=== PATIENT | female | born 1945 | race Caucasian/White ===

== ENCOUNTER → 2017-09-28 13:54 | Outpatient (CLI) | payer MEDICARE, SELFPAY ==
[2017-09-28 14:44] LABS: Add Manual Diff / Slide Review NO; Basophils Percent Auto 1.2 % (0-2); Eosinophils Percent Auto 3.9 % (2-4); Hematocrit 35.7 % (36-46); Hemoglobin 12.3 g/dL (12.0-16.0); Lymphocytes Percent Auto 29.5 % (25-40); Mean Corpuscular HGB Conc 34.5 % (30-36); Mean Corpuscular Hemoglobin 35.6 PG (26-34); Mean Corpuscular Volume 103.2 fL (80-100); Monocytes Percent Auto 10.1 % (3-14); Neutrophils Absolute Auto 2500 /uL (3000-5900); Neutrophils Percent Auto 55.3 % (50-75); Platelet Count 211 X10^3/uL (150-400); Red Blood Cell Count 3.46 X10^6/uL (4.0-5.2); Red Cell Distribution Width 14.9 % (11.6-14.8); White Blood Cell Count 4.5 X10^3/uL (4.5-11.0)
[2017-09-28 15:11] LABS: Alanine Aminotransferase 21 IU/L (9-52); Albumin 3.9 g/dL (3.5-5.0); Albumin Globulin Ratio 1.1 (1.0-2.8); Alkaline Phosphatase 60 U/L (38-126); Aspartate Aminotransferase 22 IU/L (14-36); Bilirubin Total 0.3 mg/dL (0.2-1.3); Calcium 9.3 mg/dL (8.4-10.2); Estimated Glomerular Filt Rate > 60.0 mL/min (>60); Globulin 3.7 g/dL (1.7-4.1); Glucose 102 mg/dL (80-110); HEMOLYSIS 19 (0-50); Potassium 4.1 mmol/L (3.4-5.1); Sodium 140 mmol/L (137-145); Total Protein 7.6 g/dL (6.3-8.2)
[2017-09-30 16:18] LABS: Cancer Antigen 27.29 63 U/mL (< 38)
== END ==
PROVIDERS: Family Provider Family Medicine; PCP Family Medicine; Visit Provider Nurse Practitioner Gerontology
DX: C50.911 Malignant neoplasm of unspecified site of right female breast (principal)
CPT/HCPCS: 36415; 80053; 85025; 86300

== ENCOUNTER → 2017-11-01 14:00 | Oncology outpatient (ONC) | payer MEDICARE, SELFPAY ==
--- NOTE | 2017-09-14 14:35 | ONC.NAV ---
Description: T/C from [employer] re: Ibrance funding Activity: [employer] called to share that pt has been approved for the remainder of 2018 for the full cost of her Ibrance, after insurance. They have sent her a letter to confirm this approval.
--- NOTE | 2017-10-05 09:19 | ONC.APRN.PN ---
Assessment and Plan (1) Metastatic breast cancer Current visit: No Status: Acute 10/05/17 09:25 Dilma is a very pleasant 72-year-old female who carries a diagnosis of recurrent ER positive, her 2-breast cancer with regional node involvement. She continues to show a clinical and biochemical response to first-line therapy with palbociclib and letrozole. Right side radiation was initiated September 27 with plan to administer once daily x6 weeks, Dr. Richmond is managing. Seems to be tolerating thus far without adverse effects. Dilma does present with symptoms today of a viral upper respiratory infection. Began about 5 days ago with a sore throat also reporting some head congestion, dry cough. Continue supportive measures in the form of Flonase, Claritin, Sudafed. She has a prescription about 1-year-old for amox she has been taking about 2 days. She is to call the clinic if she is not feeling better in 2 days or if at any time she develops fever, chills, productive cough. CBC and CMP remain stable, additionally, CA 27-29 continues to trend downward. White count is normal today, neutrophils a bit on the low side at 2500. She still remains within treatment guidelines for ibrance. Cont daily letrozole 2.5 mg also ibrance 125mg q14 days of a 21 day cycle. RTC in one month provider visit cbc cmp ca 27.29. Continue radiation. In regards to her returning home to [place] recommend follow-up imaging about 3 months after radiation to assess for disease stability. Patient verbalizes understanding. 10/05/17 14:50 - Time Spent with Patient 35 mins PN -Subjective Interval history: Dilma is a very pleasant 72-year-old female who carries a diagnosis of recurrent ER positive, her 2-breast cancer with regional node involvement. She has demonstrated a clinical and biochemical response to first-line therapy palbociclib, letrozole which was initiated january 2017. Dilma presents today for one month clinical evaluation. During the erim she was on vacation with her daughter to [place] and [place]. Additionally, right side radiation was initiated September 27, Dr Richmond is managing. She is scheduled for QD radiation x 6 weeks. Today Dilma reports overall she is feeling well aside from cold symptoms she developed about 5 days ago. No fever or chills began with a sore throat and dry cough. She is taking sudafed and using flonase. had an old RX for amox which she strated taking 2 days ago. Feels poorly in the morning then seems to feel better as the day progresses. Also reporting congestion in my head and ears. Also taking claritin. Seems to be tolerating radiation thus far. States skin is not irritated, she is not feeling more fatigued. Remains on letrozole 2.5mg QD, Ibrance 125mg Q 14 days of 21 day schedule. Planning to return home to [place] after radiation, she does have a cancer center locally in [place]. TIMELINE: Past Medical History The patient's past medical history is significant for: 1) Metastatic breast cancer, local-regional recurrence. ER/NE positive HER-2 negative. Clinical presentation: -Enlarged, clustered, palpable lymph nodes at the following stations: right supraclavicular (~3 cm) and right axillary (~3 cm). Chest wall lesion. Complicating right upper extremity edema from the adenopathy. Diagnosis: -12/08/2016. Chest wall incisional biopsy. Pathology confirming moderate to poorly differentiated adenocarcinoma infiltrating the dermis and subcutaneous tissues. Immunostains were ER and NE positive at 80% and 40% respectively. HER-2 0. -01/04/2017. Right supraclavicular node biopsy. Pathology showing a few atypical cells of which CHEIKH 3 and ER are positive. HER-2 = 0. Clinical staging workup, pretreatment: -12/10/2016. CT chest abdomen pelvis with contrast. Right pleural effusion with subtle pleural thickening and enhancement. Positive mediastinal lymph nodes but not meeting pathological size criteria. Right supraclavicular fossa confluent adenopathy measuring 33 x 30 mm. Right axillary adenopathy measuring 32 x 36 mm. Nodular thickening along the right lateral mastectomy bed. Indeterminate findings included left kidney exophytic cystic lesion measuring 9 cm. -12/10/2016. CT head with and without contrast. No evidence of MODEL TECHNICIAN disease. -12/18 2016. PET/CT scan. Confluent adenopathy in the right supraclavicular fossa with an SUV of 3.2. Right axillary lymph nodes with an SUV of 4.2. No SUV uptake seen in the right pleural effusion or mediastinal lymph nodes. Soft tissue density was identified in the anterior mediastinum with an SUV of 2.3. -01/08/2017. MRI brain with and without contrast. Foci of increased T2 signal subcortical and. Ventricular matter most consistent with chronic ischemic change. No abnormal enhancement to suggest malignancy. Risk Assessment: 04/07/2017. myRisk panel through [employer]. No clinically significant mutations identified. No mutations of undetermined clinical significance identified. First-line therapy metastatic setting: Palbociclib and letrozole. -01/15/2017-present. Letrozole 2.5 mg daily with palbociclib 125 mg daily ??21 days of a 28 day cycle. -01/18/2017. Baseline CEA 35. CA 15-3= 314. CA 27.29= 628. 2) DCIS right breast. Diagnosis: 2000 diagnosed and treated in [place]. Patient is status post mastectomy without axillary lymph node sampling. No chest wall or radiation. Patient was able to tolerate tamoxifen for 6 months only. 3) goiter. 4) glaucoma. 5) chronic headaches. Home Medications and Allergies Home Medications Medication Instructions Recorded Confirmed Type acetaminophen 325 mg PO #0 12/08/16 History loratadine [Claritin Liqui-Gel] 10 mg PO QDAY #0 12/08/16 History pseudoephedrine HCl 30 mg PO Q4HP PRN #0 12/08/16 History venlafaxine [Effexor XR] 150 mg PO QDAY #0 12/08/16 History risperidone [Risperdal] 0.5 mg PO HS #30 tab 12/23/16 Rx letrozole [Femara] 2.5 mg PO QDAY #90 tab 01/01/17 Rx latanoprost 1 drp OPHTH HS #0 06/08/17 History palbociclib [Ibrance] 125 mg PO QDAY #21 cap 07/08/17 Rx omeprazole 20 mg PO QDAY #90 cap 08/09/17 Rx fluticasone 50 mcg/actuation nasal 1 - 2 spray INTRANASAL QDAY #2 bot 10/01/17 Rx spray,suspension Allergies Allergy/AdvReac Type Severity Reaction Status Date / Time No Known Allergies Allergy Uncoded 08/18/17 12:45 Exam Narrative: well appearing - Constitutional positive no acute distress, positive average body habitus - Routine HEENT Exam Head: Present: normocephalic Eye: Present: EOMI, PERRL, normal accommodation, conjunctivae pink ENT: Present: mucous membranes moist, oropharynx clear Comments: no exudate - Routine Neck Exam Present: supple. Absent: lymphadenopathy - Routine Chest/Breast/Axilla Exam Axillae: Absent: lymphadenopathy, mass, tenderness - Routine Respiratory Exam Present: Clear to auscultation bilaterally - Routine Cardiovascular Exam Present: RRR, S1, S2 - Routine Abdominal Exam Present: soft, normoactive bowel sounds. Absent: tenderness, distended, organomegaly - Routine Extremities Exam Absent: edema, calf tenderness - Routine Skin Exam Present: intact, normal turgor. Absent: petechiae - Routine Neurological Exam Present: alert, oriented X3, vision grossly intact, hearing grossly intact - Routine Psychiatric Exam Present: normal affect
--- NOTE | 2017-10-05 09:24 | P.PNONC_ITS ---
Assessment and Plan (1) Metastatic breast cancer Current visit: No Status: Acute 10/05/17 09:25 Dilma is a very pleasant 72-year-old female who carries a diagnosis of recurrent ER positive, her 2-breast cancer with regional node involvement. She continues to show a clinical and biochemical response to first-line therapy with palbociclib and letrozole. Right side radiation was initiated September 27 with plan to administer once daily x6 weeks, Dr. Richmond is managing. Seems to be tolerating thus far without adverse effects. Dilma does present with symptoms today of a viral upper respiratory infection. Began about 5 days ago with a sore throat also reporting some head congestion, dry cough. Continue supportive measures in the form of Flonase, Claritin, Sudafed. She has a prescription about 1-year-old for amox she has been taking about 2 days. She is to call the clinic if she is not feeling better in 2 days or if at any time she develops fever, chills, productive cough. CBC and CMP remain stable, additionally, CA 27-29 continues to trend downward. White count is normal today, neutrophils a bit on the low side at 2500. She still remains within treatment guidelines for ibrance. Cont daily letrozole 2.5 mg also ibrance 125mg q14 days of a 21 day cycle. RTC in one month provider visit cbc cmp ca 27.29. Continue radiation. In regards to her returning home to [place] recommend follow-up imaging about 3 months after radiation to assess for disease stability. Patient verbalizes understanding. 10/05/17 14:50 - Time Spent with Patient 35 mins PN -Subjective Interval history: Dilma is a very pleasant 72-year-old female who carries a diagnosis of recurrent ER positive, her 2-breast cancer with regional node involvement. She has demonstrated a clinical and biochemical response to first-line therapy palbociclib, letrozole which was initiated january 2017. Dilma presents today for one month clinical evaluation. During the erim she was on vacation with her daughter to [place] and [place]. Additionally, right side radiation was initiated September 27, Dr Richmond is managing. She is scheduled for QD radiation x 6 weeks. Today Dilma reports overall she is feeling well aside from cold symptoms she developed about 5 days ago. No fever or chills began with a sore throat and dry cough. She is taking sudafed and using flonase. had an old RX for amox which she strated taking 2 days ago. Feels poorly in the morning then seems to feel better as the day progresses. Also reporting congestion in my head and ears. Also taking claritin. Seems to be tolerating radiation thus far. States skin is not irritated, she is not feeling more fatigued. Remains on letrozole 2.5mg QD, Ibrance 125mg Q 14 days of 21 day schedule. Planning to return home to [place] after radiation, she does have a cancer center locally in [place]. TIMELINE: Past Medical History The patient's past medical history is significant for: 1) Metastatic breast cancer, local-regional recurrence. ER/PA positive HER-2 negative. Clinical presentation: -Enlarged, clustered, palpable lymph nodes at the following stations: right supraclavicular (~3 cm) and right axillary (~3 cm). Chest wall lesion. Complicating right upper extremity edema from the adenopathy. Diagnosis: -12/08/2016. Chest wall incisional biopsy. Pathology confirming moderate to poorly differentiated adenocarcinoma infiltrating the dermis and subcutaneous tissues. Immunostains were ER and PA positive at 80% and 40% respectively. HER -2 0. -01/04/2017. Right supraclavicular node biopsy. Pathology showing a few atypical cells of which CHEIKH 3 and ER are positive. HER-2 = 0. Clinical staging workup, pretreatment: -12/10/2016. CT chest abdomen pelvis with contrast. Right pleural effusion with subtle pleural thickening and enhancement. Positive mediastinal lymph nodes but not meeting pathological size criteria. Right supraclavicular fossa confluent adenopathy measuring 33 x 30 mm. Right axillary adenopathy measuring 32 x 36 mm. Nodular thickening along the right lateral mastectomy bed. Indeterminate findings included left kidney exophytic cystic lesion measuring 9 cm. -12/10/2016. CT head with and without contrast. No evidence of SUPERVISOR ADVICE disease. -12/18 2016. PET/CT scan. Confluent adenopathy in the right supraclavicular fossa with an SUV of 3.2. Right axillary lymph nodes with an SUV of 4.2. No SUV uptake seen in the right pleural effusion or mediastinal lymph nodes. Soft tissue density was identified in the anterior mediastinum with an SUV of 2.3. -01/08/2017. MRI brain with and without contrast. Foci of increased T2 signal subcortical and. Ventricular matter most consistent with chronic ischemic change. No abnormal enhancement to suggest malignancy. Risk Assessment: 04/07/2017. myRisk panel through [employer]. No clinically significant mutations identified. No mutations of undetermined clinical significance identified. First-line therapy metastatic setting: Palbociclib and letrozole. -01/15/2017-present. Letrozole 2.5 mg daily with palbociclib 125 mg daily ?21 days of a 28 day cycle. -01/18/2017. Baseline CEA 35. CA 15-3= 314. CA 27.29= 628. 2) DCIS right breast. Diagnosis: 2000 diagnosed and treated in [place]. Patient is status post mastectomy without axillary lymph node sampling. No chest wall or radiation. Patient was able to tolerate tamoxifen for 6 months only. 3) goiter. 4) glaucoma. 5) chronic headaches. Home Medications and Allergies Home Medications Medication Instructions Recorded Confirmed Type acetaminophen 325 mg PO #0 12/08/16 History loratadine [Claritin Liqui-Gel] 10 mg PO QDAY #0 12/08/16 History pseudoephedrine HCl 30 mg PO Q4HP PRN #0 12/08/16 History venlafaxine [Effexor XR] 150 mg PO QDAY #0 12/08/16 History risperidone [Risperdal] 0.5 mg PO HS #30 tab 12/23/16 Rx letrozole [Femara] 2.5 mg PO QDAY #90 tab 01/01/17 Rx latanoprost 1 drp OPHTH HS #0 06/08/17 History palbociclib [Ibrance] 125 mg PO QDAY #21 cap 07/08/17 Rx omeprazole 20 mg PO QDAY #90 cap 08/09/17 Rx fluticasone 50 mcg/actuation nasal 1 - 2 spray INTRANASAL QDAY #2 bot 10/01/17 Rx spray,suspension Allergies Allergy/AdvReac Type Severity Reaction Status Date / Time No Known Allergies Allergy Uncoded 08/18/17 12:45 Exam Narrative: well appearing - Constitutional positive no acute distress, positive average body habitus - Routine HEENT Exam Head: Present: normocephalic Eye: Present: EOMI, PERRL, normal accommodation, conjunctivae pink ENT: Present: mucous membranes moist, oropharynx clear Comments: no exudate - Routine Neck Exam Present: supple. Absent: lymphadenopathy - Routine Chest/Breast/Axilla Exam Axillae: Absent: lymphadenopathy, mass, tenderness - Routine Respiratory Exam Present: Clear to auscultation bilaterally - Routine Cardiovascular Exam Present: RRR, S1, S2 - Routine Abdominal Exam Present: soft, normoactive bowel sounds. Absent: tenderness, distended, organomegaly - Routine Extremities Exam Absent: edema, calf tenderness - Routine Skin Exam Present: intact, normal turgor. Absent: petechiae - Routine Neurological Exam Present: alert, oriented X3, vision grossly intact, hearing grossly intact - Routine Psychiatric Exam Present: normal affect
[2017-10-05 14:17] VITALS: BP 121/82; PULSE 93; RESP 18; TEMP 36.8; O2SAT 97
--- NOTE | 2017-11-01 09:03 | P.PNONC_ITS ---
Assessment and Plan (1) Metastatic breast cancer Current visit: No Status: Acute 11/01/17 09:03 Dilma is a very pleasant 72-year-old female who carries a diagnosis of recurrent ER positive, her 2-breast cancer with regional node involvement. She has demonstrated a clinical and biochemical response to first-line therapy palbociclib, letrozole which was initiated january 2017. She continues to tolerate well thus far. She has 9 radiation treatments left after which she will be moving back home to [place]. She has oncology already lined up. CBC demonstrates mild cytopenias specifically white count 2.7 neutrophils 1500, this is a known adverse effect of ibrance. She remains within treatment guidelines. CMP largely unremarkable, CA 27-29 is pending at time of dictation. Follow-up with newly established oncologist in [place]. In the meantime certainly if she has any concerns or issues or questions we are happy to see her at any time. 11/01/17 17:11 - Time Spent with Patient 35 mins PN -Subjective Interval history: Dilma is a very pleasant 72-year-old female who carries a diagnosis of recurrent ER positive, her 2-breast cancer with regional node involvement. She has demonstrated a clinical and biochemical response to first-line therapy palbociclib, letrozole which was initiated january 2017. Dilma presents today for one month clinical evaluation. She has 9 radiation treatments left. So far tolerating well aside from increased fatigue. She reports skin is ok. Denies cough, fever, chills, difficulty swallowing, doarrhea. No new MS pain, no headaches. Appetite stable, weight also stable. Still planning to move back home to [place] after radiation. This will most likely be her last visit with medical oncology at [facility]. She already has appointment set up for oncology in [place]. Viral URI she had previous visit has resolved. Dilma remains on letrozole 2.5mg QD, ibrance 125mg Q14 days of 21 day schedule. TIMELINE: Past Medical History The patient's past medical history is significant for: 1) Metastatic breast cancer, local-regional recurrence. ER/WA positive HER-2 negative. Clinical presentation: -Enlarged, clustered, palpable lymph nodes at the following stations: right supraclavicular (~3 cm) and right axillary (~3 cm). Chest wall lesion. Complicating right upper extremity edema from the adenopathy. Diagnosis: -12/08/2016. Chest wall incisional biopsy. Pathology confirming moderate to poorly differentiated adenocarcinoma infiltrating the dermis and subcutaneous tissues. Immunostains were ER and WA positive at 80% and 40% respectively. HER -2 0. -01/04/2017. Right supraclavicular node biopsy. Pathology showing a few atypical cells of which CHEIKH 3 and ER are positive. HER-2 = 0. Clinical staging workup, pretreatment: -12/10/2016. CT chest abdomen pelvis with contrast. Right pleural effusion with subtle pleural thickening and enhancement. Positive mediastinal lymph nodes but not meeting pathological size criteria. Right supraclavicular fossa confluent adenopathy measuring 33 x 30 mm. Right axillary adenopathy measuring 32 x 36 mm. Nodular thickening along the right lateral mastectomy bed. Indeterminate findings included left kidney exophytic cystic lesion measuring 9 cm. -12/10/2016. CT head with and without contrast. No evidence of EQUALIZING SAW OPERATOR disease. -12/18 2016. PET/CT scan. Confluent adenopathy in the right supraclavicular fossa with an SUV of 3.2. Right axillary lymph nodes with an SUV of 4.2. No SUV uptake seen in the right pleural effusion or mediastinal lymph nodes. Soft tissue density was identified in the anterior mediastinum with an SUV of 2.3. -01/08/2017. MRI brain with and without contrast. Foci of increased T2 signal subcortical and. Ventricular matter most consistent with chronic ischemic change. No abnormal enhancement to suggest malignancy. Risk Assessment: 04/07/2017. myRisk panel through [employer]. No clinically significant mutations identified. No mutations of undetermined clinical significance identified. First-line therapy metastatic setting: Palbociclib and letrozole. -01/15/2017-present. Letrozole 2.5 mg daily with palbociclib 125 mg daily ?21 days of a 28 day cycle. -01/18/2017. Baseline CEA 35. CA 15-3= 314. CA 27.29= 628. 2) DCIS right breast. Diagnosis: 2000 diagnosed and treated in [place]. Patient is status post mastectomy without axillary lymph node sampling. No chest wall or radiation. Patient was able to tolerate tamoxifen for 6 months only. 3) goiter. 4) glaucoma. 5) chronic headaches. Results - Labs 11/01/17 13:46 11/01/17 13:46 Home Medications and Allergies Home Medications Medication Instructions Recorded Confirmed Type acetaminophen 325 mg PO #0 12/08/16 History loratadine [Claritin Liqui-Gel] 10 mg PO QDAY #0 12/08/16 History pseudoephedrine HCl 30 mg PO Q4HP PRN #0 12/08/16 History venlafaxine [Effexor XR] 150 mg PO QDAY #0 12/08/16 History risperidone [Risperdal] 0.5 mg PO HS #30 tab 12/23/16 Rx letrozole [Femara] 2.5 mg PO QDAY #90 tab 01/01/17 Rx latanoprost 1 drp OPHTH HS #0 06/08/17 History palbociclib [Ibrance] 125 mg PO QDAY #21 cap 07/08/17 Rx omeprazole 20 mg PO QDAY #90 cap 08/09/17 Rx fluticasone 50 mcg/actuation nasal 1 - 2 spray INTRANASAL QDAY #2 bot 10/01/17 Rx spray,suspension Allergies Allergy/AdvReac Type Severity Reaction Status Date / Time No Known Allergies Allergy Uncoded 08/18/17 12:45 Exam Vital signs: Last Vital Signs Temp 98.2 F 10/05/17 14:17 Pulse 93 H 10/05/17 14:17 Resp 18 10/05/17 14:17 BP 121/82 H 10/05/17 14:17 Pulse Ox 97 10/05/17 14:17 Narrative: well appearing - Constitutional positive no acute distress, positive average body habitus - Routine HEENT Exam Head: Present: normocephalic, atraumatic Eye: Present: conjunctivae pink. Absent: conjunctival icterus, scleral injection ENT: Present: mucous membranes moist - Routine Neck Exam Present: supple. Absent: lymphadenopathy - Routine Chest/Breast/Axilla Exam Axillae: Absent: lymphadenopathy, mass, tenderness Comments: mild erythema anterior right chest wall. No open areas, no lesions, no clear rash - Routine Respiratory Exam Present: Clear to auscultation bilaterally - Routine Cardiovascular Exam Present: RRR - Routine Abdominal Exam Present: soft, normoactive bowel sounds. Absent: tenderness, organomegaly - Routine Skin Exam Present: erythema. Absent: petechiae Comments: chest wall as per above - Routine Neurological Exam Present: alert, oriented X3 - Routine Psychiatric Exam Present: normal affect
[2017-11-01 14:08] LABS: Add Manual Diff / Slide Review NO; Basophils Percent Auto 0.4 % (0-2); Eosinophils Percent Auto 4.8 % (2-4); Hematocrit 35.1 % (36-46); Hemoglobin 11.8 g/dL (12.0-16.0); Lymphocytes Percent Auto 24.4 % (25-40); Mean Corpuscular HGB Conc 33.6 % (30-36); Mean Corpuscular Hemoglobin 35.8 PG (26-34); Mean Corpuscular Volume 106.7 fL (80-100); Monocytes Percent Auto 12.9 % (3-14); Neutrophils Absolute Auto 1500 /uL (3000-5900); Neutrophils Percent Auto 57.5 % (50-75); Platelet Count 119 X10^3/uL (150-400); Red Blood Cell Count 3.29 X10^6/uL (4.0-5.2); Red Cell Distribution Width 15.5 % (11.6-14.8); White Blood Cell Count 2.7 X10^3/uL (4.5-11.0)
[2017-11-01 14:17] LABS: Alanine Aminotransferase 18 IU/L (9-52); Albumin 4.2 g/dL (3.5-5.0); Albumin Globulin Ratio 1.2 (1.0-2.8); Alkaline Phosphatase 56 U/L (38-126); Aspartate Aminotransferase 23 IU/L (14-36); BUN Creatinine Ratio 21.3 (6-22); Bilirubin Total 0.4 mg/dL (0.2-1.3); Blood Urea Nitrogen 17 mg/dL (7-17); Calcium 9.2 mg/dL (8.4-10.2); Carbon Dioxide 26 mmol/L (22-32); Chloride 103 mmol/L (98-107); Estimated Glomerular Filt Rate > 60.0 mL/min (>60); Globulin 3.6 g/dL (1.7-4.1); Glucose 103 mg/dL (80-110); HEMOLYSIS < 15 (0-50); Potassium 3.9 mmol/L (3.4-5.1); Sodium 140 mmol/L (137-145); Total Protein 7.8 g/dL (6.3-8.2)
[2017-11-01 14:36] VITALS: BP 116/74; PULSE 98; RESP 18; TEMP 36.2; O2SAT 96
[2017-11-03 15:34] LABS: Cancer Antigen 27.29 67 U/mL (< 38)
== END ==
PROVIDERS: Family Provider Family Medicine; PCP Family Medicine; Visit Provider Nurse Practitioner Gerontology
DX: C50.911 Malignant neoplasm of unspecified site of right female breast (principal); Z17.0 Estrogen receptor positive status [ER+]
CPT/HCPCS: 36415; 80053; 85025; 86300; 99214